=== PATIENT | female | born 2005 | race African-American/Black ===

== ENCOUNTER 2024-09-17 15:25 | Outpatient (CLI) | payer OTHER, SELFPAY | END 2024-09-17 15:26 | disposition home or self-care (01) | LOC: NFLDREF 09-23 09:48 | PROVIDERS: Visit Provider Nurse Practitioner Family | DX: N30.01 Acute cystitis with hematuria (principal) | CPT/HCPCS: 87086 ==

== ENCOUNTER 2024-10-05 14:38 | Outpatient (CLI) | payer OTHER, SELFPAY | END 2024-10-05 14:39 | disposition home or self-care (01) | LOC: NFLDREF 14:39 | PROVIDERS: PCP Registered Nurse; Visit Provider Registered Nurse | DX: R31.21 Asymptomatic microscopic hematuria (principal); N39.0 Urinary tract infection, site not specified; R35.0 Frequency of micturition | CPT/HCPCS: 80048; 87086 ==

== ENCOUNTER 2024-10-22 15:46 | Outpatient (CLI) | payer OTHER, SELFPAY | END 2024-10-22 15:47 | disposition home or self-care (01) | PROVIDERS: PCP Registered Nurse; Referring Provider Registered Nurse; Visit Provider Registered Nurse | DX: R31.0 Gross hematuria (principal) | CPT/HCPCS: 87086 ==